=== PATIENT | female | born 1970 | race Caucasian/White ===

== ENCOUNTER 2018-06-03 07:30 | Emergency (ER) | payer OTHER ==
[2018-06-03 07:33] VITALS: BMI 26.5
[2018-06-03 07:36] VITALS: TEMP 97.6; O2SAT 99
--- NOTE | 2018-06-03 09:16 | C.PDOC ---
History Of Present Illness 48 y/o female comes in complaining of URI symptoms for the past 2 days with subjective fever, dry cough, headache, nasal congestion, and a scratchy sensation in the throat. She denies abdominal pain, vomiting, or diarrhea. Patient has no other complaints. Time Seen by Provider: 06/03/18 07:44 Chief Complaint (Nursing): Cough, Cold, Congestion History Per: Patient History/Exam Limitations: no limitations Onset/Duration Of Symptoms: Days Current Symptoms Are (Timing): Still Present Past Medical History Reviewed: Historical Data, Nursing Documentation, Vital Signs Vital Signs: Last Vital Signs Temp 97.6 F 06/03/18 07:33 Pulse 93 H 06/03/18 07:33 Resp 18 06/03/18 07:33 BP 139/103 H 06/03/18 07:33 Pulse Ox 99 06/03/18 07:33 Family History: States: No Known Family Hx - Social History Hx Alcohol Use: No Hx Substance Use: No - Immunization History Hx Tetanus Toxoid Vaccination: No Hx Influenza Vaccination: No Hx Pneumococcal Vaccination: No Review Of Systems Except As Marked, All Systems Reviewed And Found Negative. Constitutional: Positive for: Fever (subjective) ENT: Positive for: Nose Congestion, Other (Itchy throat) Respiratory: Positive for: Cough (dry) Gastrointestinal: Negative for: Vomiting, Abdominal Pain, Diarrhea Neurological: Positive for: Headache Physical Exam - Physical Exam Appears: Non-toxic, No Acute Distress Skin: Warm, Dry Head: Atraumatic, Normacephalic Eye(s): bilateral: Normal Inspection Nose: Other (Congested) Oral Mucosa: Moist Throat: No Erythema, No Exudate Neck: Supple Cardiovascular: Rhythm Regular, No Murmur Respiratory: Normal Breath Sounds, No Rales, No Rhonchi, No Wheezing Gastrointestinal/Abdominal: Soft, No Tenderness Extremity: Bilateral: Atraumatic, Normal ROM Neurological/Psych: Oriented x3, Normal Speech ED Course And Treatment O2 Sat by Pulse Oximetry: 99 (RA) Pulse Ox Interpretation: Normal Progress Note: Patient was swabbed for flu, was negative. Treated for URI. On re-evaluation, patient is afebrile and resting comfortably. Patient is discharged home. Disposition - Disposition Referrals: [facility] [Outside] Disposition: HOME/ ROUTINE Disposition Time: 09:10 Condition: STABLE Additional Instructions: Follow up with PMD within 1-2 days. Return to ED if feel worse. 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 - Scribe Statement The provider has reviewed the documentation as recorded by the Scribe Jess Young All medical record entries made by the Iamibayde were at my direction and personally dictated by me. I have reviewed the chart and agree that the record accurately reflects my personal performance of the history, physical exam, medical decision making, and the department course for this patient. I have also personally directed, reviewed, and agree with the discharge instructions and disposition.
[2018-06-03 09:18] VITALS: BP 128/90; PULSE 84; RESP 20
== END 2018-06-03 09:37 | disposition home or self-care (01) ==
LOC: C.ER 07:30
DX: J06.9 Acute upper respiratory infection, unspecified (principal)